=== PATIENT | female | born 1975 | race Caucasian/White ===

== ENCOUNTER 2025-03-18 14:58 | Outpatient (REF) | payer BC, SELFPAY ==
--- OUTSIDE RECORDS SUMMARY | 2025-03-15 23:59 | XMS_ITS | Continuity of Care Document ---
Author Organization Pre Op [facility]flow Address [address] [place] [id number]- [facility] [phone] Care Team Providers Care Dehydrogenation Supervisor Name Role Phone Mai Storey Primary Care Physician Encounter [facility] Date(s): 02/13/25 - 03/15/25 Pre Op Overflow [address] [place] [id number] Attending Physician: Chriss Maurice Admitting Physician: Chriss Maurice Referring Physician: Chriss Maurice Encounter Type: Triage Allergies, Adverse Reactions, Alerts No Known Allergies Medications Airborne Airborne, PRN, 0 Refills, Maintenance, 02/13/25 4:25:00 PM EDT Start Date: 02/13/25 Status: Ordered Medication Dispense Status: Completed Total Allowed Fills: 1 Fills Dispensed: 0 Magnesium Magnesium, 0 Refills, Maintenance, 02/13/25 4:25:00 PM EDT Start Date: 02/13/25 Status: Ordered Medication Dispense Status: Completed Total Allowed Fills: 1 Fills Dispensed: 0 Vitamin D3 Vitamin D3, 0 Refills, Maintenance, 02/13/25 4:25:00 PM EDT Start Date: 02/13/25 Status: Ordered Medication Dispense Status: Completed Total Allowed Fills: 1 Fills Dispensed: 0 Problem List Condition Confirmation Course Effective Dates Status Health St atus Informant Allergic rhinitis, unspecified Confirmed Active Migraine Confirmed Active Social History Social History Type Response Sexual Sexually involved in last 6 months: Yes. Smoking Status Never (less than 100 in lifetime);Never entered on: 12/10/18 Sex Sex Representation Female (finding) Patient Care team information Care Team Personnel Name: Mai Storey Position: Reference Physician Member Role: PCP Address: [address] [place] [address] [place] [address]- Telecom: Care Team Related Persons Name: NEIL SHERMAN Insurance Providers Guarantor name: RODRIGO SHERMAN Health Plan Information #: 1 Payer: [employer] [facility] Payer Identifier: NA Member Number: [id number] Group Number: [id number] Subscriber Identifier: NA Relationship to Subscriber: spouse Coverage Type: NA Coverage Verification Date: NA Telecom: NA Address:
--- OUTSIDE RECORDS SUMMARY | 2025-03-18 18:44 | XMS_ITS | Clinical Summary ---
Author Organization [facility] [address] [place] [address] [place] [phone] Phone Care Team Providers Care Bond Clerk Name Role Phone Kelsie Forte MD Primary Care Provider Allergies No known active allergies Medications polyethylene glycol (Golytely) 236-22.74-6.74 -5.86 gram solution Take 4L by mouth once for one dose. May substitue any PEG. Starting at 2PM the day before your procedure drink 1 8oz glasses at your own pace until you complete half of the gallon. Finish 2nd half of the gallon at 8PM. 4000 mL 5 Active bisacodyL (DULCOLAX) 5 mg EC tablet Take 2 tablets by mouth right before beginning bowel prep. See instructions provided by the office 2 tablet 5 Active Active Problems No known active problems Encounters Date Type Department Care Team Description 03/13/2025 Telephone Gastroenterology - [place] [facility] [address] [facility] [address] [place] [address] Ronald Mo DO 03/03/2025 7:30 AM EDT - 03/03/2025 10:30 AM EDT Surgery [facility] [place] [address] [place] [phone] Elena Graves MD ABDOMINOPLASTY [[id number] (CPT )] 03/03/2025 7:30 AM EDT Anesthesia Event [facility] OR [address] [place] [phone] Ronen Barba MD 03/03/2025 6:07 AM EDT - 03/03/2025 12:15 PM EDT Hospital Encounter [facility] [place] [phone] Elena Graves MD Discharge Disposition: Home or Self Care from Last 3 Months Surgical History Surgery Date Site/Laterality Comments EYE SURGERY 2011 PROCEDURE: [place] TRABECULOPLASTY BY LASER SURGERY LIPOSUCTION Medical History Medical History Date Comments Premenstrual tension syndromes D X:Premenstrual tension syndromes Allergic rhinitis, cause unspecified DX:Allergic rhinitis, cause unspecified Family History Medical History Relation Name Comments Other: skin cancer Aunt maternal Other cancer Father liver pancreas bone Prostate cancer Maternal Grandfather [place], diabetes, hypertension Other: ptosis Son 1 Breast cancer Neg Hx Colon cancer Neg Hx Ovarian cancer Neg Hx Uterine cancer Neg Hx Relation Name Status Comments Aunt Brother Alive Healthy Father cancer pancreas spread to liver Maternal Grandfather Alive DM, [place], HTN, Prostrate cnacer Maternal Grandmother Alive Healthy Mother Alive Healthy, skin c ancer - unknown type Paternal Grandfather (Age 70's) liver cancer Paternal Grandmother Alive Heathy Son 1 Son 2 Alive Healthy Son 3 Alive Healthy Social History Tobacco Use Types Packs/Day Years Used Date Smoking Tobacco: Never Smokeless Tobacco: Never Alcohol Use Standard Drinks/Week Comments Yes 3.3 (1 standard drink = 0.6 oz p ure alcohol) Housing Instability Answer Date Recorde d Are you worried that in the next 2 months you may not have stable housing? No 12/08/2024 Food Access & Nutrition Answer Date Rec orded Do you have access to a vari ety of food including fruits and vegetables? Yes 12/08/2024 Access to Healthcare Answer Date Record ed Within the last 3 months, ho w many times did you visit the emergency department for your medical care? 0 12/08/2024 Health Literacy Answer Date Recorded How often do you need to hav e someone help you when you read instructions, pamphlets, or other written material from your doctor or pharmacy? Never 12/08/2024 Caregiver: How often do you need to have someone help you when you read instructions, pamphlets, or other written material from your doctor or pharmacy? Not on file 12/08/2024 Financial Risk Answer Date Recorded How hard is it for you to pa y for the very basics like food, housing, medical care, and air conditioning / heating? Not very hard 12/08/2024 Transportation Answer Date Recorded Has the lack of transportati on kept you from meetings, work, or from getting things needed for daily living? No Has the lack of transportati on kept you from medical appointments or from getting medications? No 12/08/2024 Social Isolation Answer Date Recorded How often do you feel lonely or isolated from th ose around you? Never 12/08/2024 Food Risk Answer Date Recorded Within the past 12 months we worried whether our food would run out before we got money to buy more. Never true 12/08/2024 Within the past 12 months th e food we bought just didn't last and we didn't have money to get more. Never true 12/08/2024 Dependent Care Answer Date Recorded Do you need help finding or paying for care for your loved ones. For example, children's zoo caretaker or elderly care for an older adult? No 12/08/2024 Education Answer Date Recorded Do you think completing more education or training, like finishing a GED, going to college, or learning a trade, would be helpful for you? No 12/08/2024 Employment and Income Answer Date Recor ded During the last four weeks, have you been actively looking for work? No 12/08/2024 Living Situation Answer Date Recorded What is your living situation? Unrecognized valu e 12/08/2024 Comments No Sex and Gender Information Value Date Recorded Sex Assigned at Not on file Legal Sex Female 1:49 AM EST Gender Identity Not on file Sexual Orientation Not on file Obstetrics History Para Term AB IAB SAB Ectopic Multiple Livin g Live Births 2 2 2 2 Date Outcome GA Total Labor Labor/2nd/3rd Weight Sex Type Anes PTL Candie A1 A5 Name Clin Term Term Last Filed Vital Signs Vital Sign Reading Time Taken Comments Blood Pressure 110/66 03/03/2025 10:46 AM EDT Pulse 71 03/03/2025 10:46 AM EDT Temperature 36.5 C (97.7 F) 03/03/2025 10:46 AM EDT Respiratory Rate 16 03/03/2025 10:46 AM EDT Oxygen Saturation 94% 03/03/2025 10:46 AM EDT Inhaled Oxygen Concentration - - Weight 78 kg (172 lb) 02/10/2025 3:00 PM EDT Height 180.3 cm (5' 11 ) 02/10/2025 3:00 PM EDT Body Mass Index 23.99 02/10/2025 3:00 PM EDT Plan of Treatment Health Maintenance Due Date Last Done Comments Colorectal Cancer Screening: Colonoscopy 1974 Hepatitis B Vaccines (1 of 3 - 19+ 3-dose series) 1993 HIV Screening 04/15/2022 Hepatitis C Screening 04/15/2022 DTaP,Tdap,and Td Vaccines (3 - Td or Tdap) 05/26/2023 05/26/2013, 05/24/2001 Pneumococcal Vaccine: 50+ Years (1 of 1 - PCV) 2024 Zoster Vaccines (1 of 2) 2024 COVID-19 Vaccine ( season) 2025 07/07/2021, 08/20/2020, 07/23/2020 Influenza Vaccine (#1) 2025 Social Influencers of Health Screening 12/08/2025 12/08/2024 Breast Cancer Screening 10/20/2026 10/21/19, 10/01/2024, 09/20/2023, Additional history exists Cervical Cancer Screening: HPV 12/09/2029 12/09/2024 RSV Immunization Adult Patients (1 - 1-dose 75+ series) 2049 Depression Screening Completed 12/08/2024 HIB Vaccines Aged Out No longer eligi ble based on patient's age to complete this topic HPV Vaccines Aged Out No longer eligi ble based on patient's age to complete this topic Hepatitis A Vaccines Aged Out No long er eligible based on patient's age to complete this topic IPV Vaccines Aged Out No longer eligi ble based on patient's age to complete this topic MMR Vaccines Aged Out No longer eligi ble based on patient's age to complete this topic Meningococcal ACWY Vaccine Aged Out N o longer eligible based on patient's age to complete this topic Meningococcal B Vaccine Aged Out No l onger eligible based on patient's age to complete this topic RSV Immunization Patients Under 20 months Aged Out No longer eligible based on patient's age to complete this topic Varicella Vaccines Aged Out No longer eligible based on patient's age to complete this topic Goals Goal Patient Goal Type Associated Problems Recent Progress Patient-Stated? Author Autogenerat ed Goal Care Plan Autogenerated Problem No Shayne Marion Procedures Procedure Name Priority Date/Time Associated Diagnosis Comments TH AN ENDOTRACHEAL(NO CHARGE) Routine 03/03/2025 8:00 AM EDT OH EXCISION EXCESSIVE SKIN AND SUBCUTANEOUS TISSUE ABDOMEN 03/03/2025 7:30 AM EDT Encounter for cosmetic surgery Case Notes CC POC , URINE DIAGNOSTIC Routine 03/03/2025 6:20 AM EDT HPV WITH REFLEX GENOTYPE Routine 12/09/2024 3:35 PM EDT Cervical cancer screening MG MAMMO DIGITAL DIAGNOSTIC W [place] RIGHT Routine 10/20/2024 3:20 PM EDT Abnormal mammogram from Last 3 Months or Most Recently Relevant to Health Maintenance Results * TH AN ENDOTRACHEAL(NO CHARGE) (03/03/2025 8:00 AM EDT) Narrative Ronen Barba MD - 03/03/2025 8:00 AM EDT Ronen Barba MD 03/03/2025 8:01 AM General Information and Staff Patient location during procedure: OR Performed by: Ronen Barba MD Authorized by: Ronen Barba MD Intubation Airway not difficult Reason: elective Final Airway Details Successful airway: ETT Cuffed: yes Successful intubation technique: direct laryngoscopy Adjuncts used in placement: intubating stylet Endotracheal tube insertion site: oral Blade: Ashok Blade size: #3 ETT size (mm): 7.0 Cormack-Lehane Classification: grade I - full view of glottis Placement verified by: chest auscultation and capnometry Cuff volume (mL): 8 Measured from: teeth ETT to teeth (cm): 21 Final airway type: endotracheal airway Indications and Patient Condition Indications for airway management: anesthesia Preoxygenated: yesPatient position: sniffing Mask difficulty assessment: 1 - vent by mask Start Time: 03/03/2025 7:39 AMStop Time: 03/03/2025 7:40 AM us Ronen Barba MD ANESTHESIA ORDERABLES Final R esult * POC , urine manually resulted (03/03/2025 6:20 AM EDT) HCG, Ur POC Negative Negative POC hCG Int QC Pass? Yes Yes Urine Urine specimen obtained by clean catch procedure / Unknown 03/03/2025 6:20 AM EDT us Ronen Barba MD POINT OF CARE TEST ENTER/EDIT ORDERABLES Final Result * HPV with reflex genotype (12/09/2024 3:35 PM EDT) HPV Negative Negative LAB MICROBIOLOGY METHOD 12/12/2024 8:55 AM EDT [facility] Brushing/Spatula Cervix uteri structure / Unknown 12/09/2024 3:35 PM EDT 12/11/2024 7:06 AM EDT Dulce [facility] LAB MOLECULAR DIAGNOSTICS OR DERABLES Final Result [facility] [address] [place] [address], [place] [phone] * MG Mammo Digital Diagnostic w [place] Right (10/20/2024 3:20 PM EDT) Anatomical Region Laterality Modality Breast Right Mammography 10/20/2024 3:28 PM EDT Impressions 10/20/2024 3:48 PM EDT 1. No mammographic or sonographic evidence of malignancy 2. Heterogeneously dense Findings and recommendations were conveyed to the patient. BI-RADS CATEGORY: 2 - BENIGN RECOMMENDATION: Return to annual mammography. Return to annual mammography. Mammo Location: [facility], [address] [place] [address], [id number], . -------- FINAL REPORT -------- Dictated By: Venus Pierre Dictated Date: 10/20/2024 15:28 ET Assigned Physician: Venus Pierre Reviewed and Electronically Signed By: Venus Pierre Signed Date: 10/20/2024 15:48 ET Workstation ID: [id number] Transcribed By: Self Edit Transcribed Date: 10/20/2024 15:47 ET Narrative 10/20/2024 3:48 PM EDT RIGHTDIGITAL DIAGNOSTIC 3D MAMMOGRAPHY HISTORY: Workup for CC view medial middle depth asymmetry COMPARISON: Mammogram from 10/01/2024 Technique: CC spot compression 3-D FINDINGS: Right breast CC view medial middle depth asymmetry becomes equal in density on spot compression and is consistent with benign summation of fibroglandular tissue. Sonographic evaluation demonstrates no focal abnormality BREAST DENSITY: C - The breasts are heterogeneously dense which may obscure small masses. EXAM: RIGHT BREAST TARGETED ULTRASOUND EVALUATION TECHNIQUE: Ultrasonographic examination is performed using a linear array transducer. Targeted right breast ultrasound from 12:00 to 6:00 of the medial breast evaluate mammographic finding. Real-time sonographic scanning was also performed by the radiologist FINDINGS: From 12:00-6:00 of the medial breast, no sonographic evidence of malignancy or other focal abnormalities were identified at the right breast in area of mammographic concern Procedure Note Venus Pierre MD - 10/20/2024 RIGHTDIGITAL DIAGNOSTIC 3D MAMMOGRAPHY HISTORY: Workup for CC view medial middle depth asymmetry COMPARISON: Mammogram from 10/01/2024 Technique: CC spot compression 3-D FINDINGS: Right breast CC view medial middle depth asymmetry becomes equal indensity on spot compression and is consistent with benign summation offibroglandular tissue. Sonographic evaluation demonstrates no focalabnormality BREAST DENSITY: C - The breasts are heterogeneously dense which mayobscure small masses. EXAM: RIGHT BREAST TARGETED ULTRASOUND EVALUATION TECHNIQUE: Ultrasonographic examination is performed using a linear arraytransducer. Targeted right breast ultrasound from 12:00 to 6:00 of themedial breast evaluate mammographic finding. Real-time sonographicscanning was also performed by the radiologist FINDINGS: From 12:00-6:00 of the medial breast, no sonographic evidence ofmalignancy or other focal abnormalities were identified at the rightbreast in area of mammographic concern IMPRESSION: 1. No mammographic or sonographic evidence of malignancy 2. Heterogeneously dense Findings and recommendations were conveyed to the patient. BI-RADS CATEGORY: 2 - BENIGN RECOMMENDATION: Return to annual mammography. Return to annual mammography. Mammo Location: [facility], [address] [place] [address], [id number], . -------- FINAL REPORT -------- Dictated By: Venus Pierre Dictated Date: 10/20/2024 15:28 ET Assigned Physician: Venus Pierre Reviewed and Electronically Signed By: Venus Pierre Signed Date: 10/20/2024 15:48 ET Workstation ID: [id number] Transcribed By: Self Edit Transcribed Date: 10/20/2024 15:47 ET Benji Gómez CN IMG BI PROCEDURES Final Resul t from Last 3 Months or Most Recently Relevant to Health Maintenance Additional Health Concerns Active Problems Noted Date Diagnosed Date Autogenerated Problem 03/04/[address] [place] [address] [place] [address]) Advance Directives * Full Code - Default (Latest Code Status on File) Date Activated Date Inactivated Comments 03/03/2025 6:20 AM 03/03/2025 2:20 PM This is or michelle is used when code status has not been discussed with the patient, or code status is otherwise unknown/unconfirmed To update the patient's code status, place a code status order. Do not modify or discontinue any currently active code status orders. Care Teams Bond Clerk Relationship Specialty Start Date End Date Kelsie Forte MD [address] [place] [address] PCP - General Internal Medicine 06/01/15
--- OUTSIDE RECORDS SUMMARY | 2025-03-18 18:44 | XMS_ITS | Encounter Summary ---
Author Organization [facility] Address [address] [place] [address] Care Team Providers Care Product Planner Name Role Phone Kelsie Forte MD Primary Care Provider [phone] Reason for Visit * Reason Onset Date Comments r/s procedure 03/13/2025 Encounter Details Date Type Department Care Team ([facility] Contact Info) Description 03/13/2025 Telephone Gastroenterology - [place] [address] [facility] [address] [facility] [address] [place] [phone] Ronald Mo DO [address] [facility] [address] [place] [address] Social History Tobacco Use Types Packs/Day Years [...] care for your loved ones. For example, child welfare specialist or elderly care for an older adult? [...] on file Sexual Orientation Not on file documented as of this encounter Progress Notes * Alexandra Turner MA - 03/17/2025 8:17 AM EST 2nd attempt to schedule an appointment patient left message to call back * Rica Vo - 03/13/2025 9:19 AM EST CANCELLED. 1st attempt to reach patient to schedule appointment. Left message to call back. * Elida Cardoso - 03/13/2025 9:08 AM EST Pt is calling to r/s her procedure due to just having another procedure. documented in this encounter Plan of Treatment Not on file documented as of this encounter Goals Goal Patient Goal Type Associated Problems Recent Progress Patient-Stated? Author Autogenerat ed Goal Care Plan Autogenerated Problem No Shayne Marion documented as of this encounter Visit Diagnoses Not on filedocumented in this encounter Additional Health Concerns Active Problems Noted Date Diagnosed Date Autogenerated Problem 03/04/2025 Assessment Noted Time PHQ-9 Depression Total Score: 0 12/09/19 25 9:00 PM EDT documented as of this encounter Care Teams Product Planner Relationship Specialty Start Date End Date Kelsie Forte MD [address] [place] [phone] PCP - General Internal Medicine 06/01/15 documented as of this encounter
[2025-03-18 18:47] LABS: Alanine Aminotransferase 26 U/L (0-31); Albumin Level 4.6 g/dL (3.5-5.0); Alkaline Phosphatase 63 U/L (39-117); Anion Gap 12 (12-20); Aspartate Amino Transferase 26 U/L (5-31); Blood Urea Nitrogen 14 mg/dL (9-16); Calcium 9.1 mg/dL (8.4-10.2); Carbon Dioxide 24 mmol/L (22-29); Chloride 108 mmol/L (96-108); Cholesterol 206 mg/dL (<200); Estimated Glomerular Filt Rate > 60; HDL Cholesterol 68 mg/dL (>40); Potassium 3.8 mmol/L (3.3-5.1); Sodium 140 mmol/L (135-145); Total Protein 7.4 g/dL (6.5-8.0); Triglycerides 116 mg/dL (<150)
[2025-03-18 19:05] LABS: Hematocrit 37.0 % (37.0-47.0); Hemoglobin 12.9 g/dl (12.0-16.0); Mean Corpuscular HGB Conc 34.9 g/dl (31.0-35.0); Mean Corpuscular Hemoglobin 30.9 pg (27.0-33.0); Mean Corpuscular Volume 88.5 fL (80.0-98.0); NRBC Abs Auto 0.000 X10*3/uL (0.0-0.012); NRBC Pct Auto 0.0 /100WBC (0.0-0.2); Platelet Count 256 X10*3/uL (160-400); Red Blood Count 4.18 X10*6/uL (4.20-5.50); White Blood Count 8.8 X10*3/uL (4.8-10.8)
[2025-03-18 19:14] LABS: Folate 12.1 ng/mL (> or = 4.0); Vitamin B12 894 pg/mL (200-900)
== END 2025-03-18 14:59 | disposition home or self-care (01) ==
LOC: HO.WFDLDS 14:58
PROVIDERS: PCP Nurse Practitioner Family; Visit Provider Nurse Practitioner Family
DX: Z00.00 Encounter for general adult medical examination without abnormal findings (principal); Z23 Encounter for immunization; Z76.89 Persons encountering health services in other specified circumstances; D22.9 Melanocytic nevi, unspecified; K46.9 Unspecified abdominal hernia without obstruction or gangrene; Z80.7 Family history of other malignant neoplasms of lymphoid, hematopoietic and related tissues; Z80.0 Family history of malignant neoplasm of digestive organs
CPT/HCPCS: 36415; 80053; 80061; 82306; 82570; 82607; 82746; 83036; 84443; 85027; 90471; 90715; 96127

== ENCOUNTER 2025-03-18 14:58 | Outpatient (AMB) | payer BC, SELFPAY ==
--- NOTE | 2025-03-18 15:06 | A.OFFPC_ITS ---
Vital Signs 3 03/18/25 15:11 Height 5 ft 11 in Weight 178 lb 2 oz BMI 24.8 BP 122/70 Blood Pressure Location Lt brachial Position Sitting Respiration 12 Pulse 85 Pulse Source Pulse Oximeter Temp 97.2 F Temp Source Oral Pulse Oximetry (%) 98 Oxygen Delivery Method Room Air Intake Visit Reasons: CPE -rescheduled 3x Intake Note: New patient to establish care and cpe. Patient had surgery on 03/03/25 and has a bump on abd. Obstetrical Nurse Required: No Allergies No Known Allergies Allergy (Verified 03/18/25 15:15) Medication List - Last Reviewed 03/18/25 by Rajni Puckett MA No Known Home Meds Tobacco use date assessed: 03/18/25 Dental Screening Dental Screen Date: 03/18/25 Did you have a dental visit in the last 12 months?: Yes Did you have a dental problem in the last 6 months where you did not have access to dental care?: No Was dental information given to patient?: Patient has dentist HPI HPI Comments 2 History of Present Illness0 Details 49 y/o F with Lattice degeneration of re roseline, perimenopause, fhx pancreatic cancer (dad) & PROJECT FINANCE ANALYST lymphoma (Mom) s/p reverse abdominoplasty 03/03/25, retinal laser treatment Fhx: Mom alive w/ PROJECT FINANCE ANALYST lymphoma CAD; Dad pancreatic ca 59; 1 brother alive and well; 2 boys alive and well. MGF with prostate ca Social: 6th grade [employer], [place] Tdap 2013 Flu declined 03/18/2025 Mammo September 2024 ([facility]) DEXA N/A Colon will have done at [facility] Pap UTD through GAME ENGINEER 12/2024 Specialists Retinal specialist Optho [employer] 12/2024 History of Present Illness The patient is a 49-year-old female presenting to establish care & for CPE No records GAL [place] Postoperative complication of abdominal surgery: - The patient underwent a reverse abdomi noplasty on March 03, which was a revision of a previous lower abdominoplasty. - She developed a new, non-painful, flui d-filled bump on her abdomen last night, which she noticed while sitting on the couch. - She denies any associated straining, l ifting, fever, chills, nausea, or vomiting. - Her last follow-up with the plastic alfaro rgeon was last Sunday. Lattice degeneration of retina: - The patient has a history of weak reti derek with concerns for detachment, described as lattice degeneration. - She has undergone laser treatment in [facility] to strengthen the retinas and follows with a retinal specialist. Perimenopause: - The patient had an IUD for over 10 yea rs, which was removed in December. - Following the removal, she experienced a return of her menstrual periods, which were heavy in December and January, quality tech in February, and absent so far in the current month, consistent with a perimenopausal state. Health Maintenance: - She reports no chronic medical conditi ons and is not taking any medications. - Her last mammogram was in September, which r equired a follow-up for dense tissue in the right breast but was ultimately normal. - A colonoscopy was recently scheduled b ut was postponed by her surgeon due to her abdominal surgery; she plans to reschedule it. - She is up to date with her Pap smear. - Her last tetanus shot was in 2013. - She has not had a flu shot in a long t [facility] and declines one today. Past Medical History - Lattice degeneration of retina, status post laser treatment. - Dense breast tissue on mammography. - History of IUD use for 10+ years, crystal [place] in December. Past Surgical History - Reverse abdominoplasty on March 03 . - Prior lower abdominoplasty. - Laser treatment to both retinas for la ttice degeneration. Family History - Mother: Alive with a history of PROJECT FINANCE ANALYST ly mphoma. - Father: at age 59 from pancre atic cancer. - Siblings: One brother, alive and well. - Children: Two sons, alive and well. - No other family history of cancer repo rted. 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 - Marital Status: . Health Maintenance - Pap smear: Up to date. - Mammogram: Completed in September, results w ere normal after a callback for dense tissue in the right breast. - Colonoscopy: Screening is due, was pos tponed due to recent surgery, and patient will reschedule. - Immunizations: Tdap due and administer ed today as last dose was in 2013. Patient declines seasonal flu vaccine. - Screening labs: Ordered for today to e stablish a baseline, including CBC, diabetes, and cholesterol screening. - Dermatology: Referral placed for a ful l body skin exam for multiple nevi. Review of Systems - Constitutional: Denies fever and chill s. - Gastrointestinal: Reports a new, non-p ainful, fluid-filled bump on her abdomen. Denies nausea and vomiting. - Genitourinary: Reports irregular mense s since IUD removal in December, consistent with perimenopause. - Eyes: Reports history of weak retinals with concern for detachment. - Skin: Reports having numerous moles. Physical Exam General: Well developed, well nourished, in no acute distress. Appears stated age. Head: Normocephalic, atraumatic. Eyes: Pupils are equal, round and reactive to light and accommodation. Conjunctivae are clear. Scleras nonicteric bilat. Vision grossly normal. Ears: TMs clear AU, EACS WNL Nose: Patent, without discharge. Neck: No carotid bruit bilat. Supple, no adenopathy or thyromegaly. Breast: Edu on SBE. Lungs: Clear to auscultation bilaterally. No rales, rhonchi or wheeze noted. Good air flow in all lewis. Heart: Regular rate and rhythm. No murmurs, click, rubs or gallops are noted. Abdomen: Bowel sounds present in all quadrants. The abdomen is soft, nontender, with no masses or organomegaly noted. : Deferred. Reviewed recommendations for routine GAME [employer]. Perimenopausal symptoms noted. Pulses: Peripheral pulses are equal and palpable bilaterally. Extremities: No clubbing, cyanosis nor edema is noted. Neurologic: Gait and station normal. Cranial Nerves 2-12 intact. Motor strength grossly symmetrical and intact. No sensory loss. Balance normal. Skin: No rashes, ulcers, or lesions noted. Turgor is good. Skin color is good. Hair and nails are without abnormalities. Numerous moles on trunk Psych: Normal eye contact, affect and mood appropriate, and normal interactions. Patient is alert and appropriate to context. Results Pending Medical Decision Making The patient is a 49-year-old female here to establish primary care. Her main acute concern is a new, palpable, fluid-filled mass on her abdomen that developed last night, following a reverse abdominoplasty on March 03. On physical examination, the mass becomes larger and firmer with abdominal flexion, which is concerning for a possible incisional hernia, though a seroma remains in the differential. Given these findings, she has been advised to follow up urgently with her plastic surgeon for further evaluation. Health maintenance was also addressed. Baseline laboratory studies, including a CBC, CMP, and lipid panel, were ordered to establish a baseline and to check her blood counts post-surgery. A Tdap vaccine was recommended and administered as she was due for a booster. Due to the presence of multiple moles, a dermatology referral was placed for a skin cancer screening. The patient will also reschedule her colonoscopy, which had been postponed. Follow-up is scheduled in one year for an annual physical. Plan 1. Postoperative Complication Of Reconst ructive Surgery Of Abdominal Wall - The differential diagnosis for the new abdominal mass includes a seroma and an incisional hernia. - The finding that the mass becomes larg er and firmer with abdominal flexion is suspicious for a hernia. - Advised to call her plastic surgeon fo r evaluation. 2. Annual Wellness Visit/Establishment O f Care - Administer Tdap vaccine today. - Obtain baseline screening labs, includ ing CBC, chemistry panel, and lipid panel. - Place referral to Dermatology for a fu ll-body skin exam. - Counselled to reschedule her postponed colonoscopy. - Instructed patient on signing up for a nd using the patient portal. - Schedule follow-up in one year for an annual wellness visit. 3. Lattice Degeneration Of Retina - The condition is being managed by a re tinal specialist. - Continue to follow up with ophthalmolo gy as directed. 4. Perimenopausal State - The patient's irregular menstrual cycl e is consistent with perimenopause. - No acute intervention is planned at th is time; will monitor. Patient Instructions - Please call your plastic surgeon's off ice to have the new bump on your abdomen evaluated. - You will receive a Tdap (tetanus, diph theria, and whooping cough) vaccine today before you leave. - We are ordering blood tests to check y our blood counts, cholesterol, and kidney function as a baseline. You can have these done at our lab today. - A referral has been sent to a skin spe cialist (furniture dipper). Please wait about a week, then call their office to schedule your appointment. - Please remember to reschedule your col onoscopy. - You will receive an email to sign up f or our patient portal. Please click the link and register within 24 hours. This is the best way to message me, ask questions, and see your lab results. - Please schedule a follow-up appointmen t for an annual check-up in one year. Consent The patient provided verbal consent for baseline laboratory testing, including a CBC, chemistry panel, and lipid panel, after the rationale for wellness screening and postsurgical monitoring was explained. She also provided verbal consent for a Tdap vaccination. The patient's request for confidentiality regarding her abdominal surgery from her mother, who is also a patient at this practice, was acknowledged and assured in accordance with HIPAA regulations. Patient was informed and verbally consented to the use of an ambient scribe for clinic note documentation during this visit. An additional 30 minutes was spent addressing the problem(s) noted at todays visit. This includes time spent before the visit reviewing the chart, time spent during the visit, and time spent after the visit on documentation reviewing laboratory results, diagnostic imaging, medications, performing a medically necessary evaluation, counseling on diagnoses, care coordination, ordering appropriate tests, ordering appropriate medications, review of tests performed by other providers, reporting test results with the patient, communication with other healthcare providers. [facility] Medical History (Updated 03/18/25 @ 15:45 by Shameka Mclean, [facility]) Hx of mammogram (~09/2024) No pertinent past medical history Surgical History (Updated 03/18/25 @ 15:16 by Rajni Puckett MA) H/O abdominoplasty H/O eye surgery Family History (Updated 03/18/25 @ 15:18 by Rajni Puckett MA) Paternal Grandmother Cardiovascular disease Mother Brain cancer Father Pancreas cancer Paternal Grandfather Prostate cancer Social History (Updated 03/18/25 @ 15:14 by Rajni Puckett MA) Household Members: Spouse and Children Both parents involved: No Caregiver staying overnight: No Housing: House Are you a primary animal care taker to a significant other at home: Yes Do you presently have visiting nurse or other home services: No 75 years or older and lives alone: No Alcohol intake: current Alcohol intake frequency: a few times a month Patient Tobacco Use Status: Never used Tobacco e-Cigarette/Vaping Use: Never Used Second Hand Smoke Exposure: No service: No Current occupational status: employed Current occupation: teacher Cognitive needs: No Hearing needs: No Vision needs: Yes (wear glasses/retina detaching ) Questionnaire PHQ-9 Over the last 2 weeks, how often have you been bothered by any of the following problems? 1. Little interest or pleasure in doing things: not at all 2. Feeling down, depressed, or hopeless: not at all 3. Trouble falling or staying asleep, or sleeping too much: not at all 4. Feeling tired or having little energy: not at all 5. Poor appetite or overeating: not at all 6. Feeling bad about yourself - or that you are a failure or have let yourself or your family down: not at all 7. Trouble concentrating on things, such as reading the newspaper or watching television: not at all 8. Moving or speaking so slowly that other people could have noticed. Or the opposite - being so fidgety or restless that you have been moving around a lot more than usual: not at all 9. Thoughts that you would be better off or of hurting yourself in some way: not at all Total score: 0 Depression Screening Interpretation: Negative Depression Screening Done: Yes 19903 - PHQ-9 Billing: Yes Source: Developed by Drs. Hernandez Borrero, Anyi Rangel, Jason Culp and colleagues, with an educational harish from [employer]. Thrive Questionnaire Date Thrive assessed: 03/18/25 I am a: Patient What is your living situation today?: I have a steady place to live Within the past 12 months, did the food you bought not last and you didn't have the money to get more?: Never true Within the past 12 months, did you worry whether your food would run out before you got money to buy more?: Never true Do you have trouble paying for medicines?: No Do you have trouble getting transportation to medical appointments?: No Do you have trouble paying your heating and electricity bill?: No Do you have trouble taking care of your child, family member or friend?: No Do you have trouble with day-to-day activities such as bathing, preparing meals, shopping, managing finances, etc.?: No Are you currently unemployed and looking for a job?: No Are you interested in more education?: No Please select the resources that you would like help with: None Currently or been in a relationship where the following occur: No concerns reported THRIVE Score: 0 AUDIT C Alcohol Use Questionnaire (AUDIT-C) 1. How often do you have a drink containing alcohol?: 2-3 times a week 2. How many drinks containing alcohol do you have on a typical day when you are drinking?: 1 or 2 3. How often do you have six or more drinks on one occasion?: Never Total Score: 3 Score Reviewed/Action Taken: Yes NATHALIE-7 AMB Questionnaire NATHALIE-7 Date NATHALIE - 7 assessed: 03/18/25 Feeling nervous, anxious, or on edge: 0 = Not at all Not being able to stop or control worryin = Not at all Worrying too much about different things: 1 = Several days Trouble relaxin = Not at all Being so restless that it is hard to sit still: 0 = Not at all Becoming easily annoyed or irritable: 0 = Not at all Feeling afraid as if something awful might happen: 0 = Not at all Total NATHALIE-7 score (0-4 normal; 5-9 mild; 10-14 moderate; 15-21 severe): 1 Source: Developed by Drs. Hernandez Borrero, Anyi Rangel, Jason Culp and colleagues, with an educational harish from [employer]. NATHALIE-7 Assessment Billing NATHALIE-7 Assessment Tool: NATHALIE-7 Assessment 16262 Physical exam (Primary Care) Vital Signs: Last Vital Signs Temp 97.2 F 03/18/25 15:11 Pulse 85 03/18/25 15:11 Resp 12 03/18/25 15:11 BP 122/70 03/18/25 15:11 Pulse Ox 98 03/18/25 15:11 Oxygen Delivery Method Room Air 03/18/25 15:11 BMI result Body Mass Index 24.8 Tobacco/Smoking Status: Tobacco use Status Tobacco use date assessed 03/18/25 03/18/25 15:13 Patient Tobacco Use Status Never used Tobacco 03/18/25 15:14 e-Cigarette/Vaping Use Never Used 03/18/25 15:14 PHQ-9: PHQ-9 Score PHQ-9: Total score 0 03/18/25 15:23 Depression Screening Interpretation: Negative Thrive Assessment: Date of Thrive Assessment Date Thrive assessed 03/18/25 03/18/25 15:08 Currently or been in a relationship where the following occur: No concerns reported GI Abdomen image: 2 1. well healing surgical incision 2. visible mass, soft, nontender, increases and becomes semifirm with valsalva Immunizations Boostrix Tdap 2.5 Lf unit-8 mcg-5 Lf/0.5 mL intramuscular syringe Performing Provider: CATHERNIE Beltran Performing Location: [facility] Family Medicine Administered by: Rajni Puckett MA on 03/18/25 15:39 2 Dose Route Admin Location Dispensed Lot Number Expiration Date NDC Cabin Worker 0.5 mL IM Left Deltoid 0.5 mL [id number] 04/03/27 [id number] Varolii 2 Total Dispensed Waste 0.5 mL 0 % 2 VIS Given Date VIS Provided VIS Publication Date 03/18/25 Single Vaccine 20 Eligibility Eligibility Date Funding Source Not [facility] Eligible 03/18/25 Private Coding Level of Care Code New Pt Level 3 (20034) New Pt Prev Care 40-64y(19082) Diagnoses Encounter to establish care Z76.89 Laboratory exam ordered as part of routine general medical examination Z00.00 Numerous skin moles D22.9 Need for Tdap vaccination Z23 Influenza vaccination declined Z28.21 Family history of pancreatic cancer Z80.0 Family history of lymphoma Z80.7 Encounter for general adult medical examination without abnormal findings Z00.00 Abdominal hernia K46.9 Hernia type: unspecified Additional Codes NATHALIE-7 Assessment Billing - NATHALIE-7 Assessment Tool: NATHALIE-7 Assessment 38168 ([id number]) PHQ-9 - 58020 - PHQ-9 Billing: Yes ([id number]) Assessment & Plan Assessment & Plan (1) Encounter to establish care: Code(s): Z76.89 - Persons encountering health services in other specified circumstances (2) Laboratory exam ordered as part of routine general medical examination: Code(s): Z00.00 - Encounter for general adult medical examination without abnormal findings Category: Medical (3) Numerous skin moles: Code(s): D22.9 - Melanocytic nevi, unspecified Category: Medical (4) Need for Tdap vaccination: Onset Date: ~03/18/25 Code(s): Z23 - Encounter for immunization Category: Medical (5) Influenza vaccination declined: Onset Date: ~03/18/25 Code(s): Z28.21 - Immunization not carried out because of patient refusal Category: Medical (6) Family history of pancreatic cancer: Comment: DAD AGE 59 Code(s): Z80.0 - Family history of malignant neoplasm of digestive organs Category: Medical (7) Family history of lymphoma: Comment: MOM W/ PROJECT FINANCE ANALYST LYMPHOMA AGE 70'S Code(s): Z80.7 - Family history of other malignant neoplasms of lymphoid, hematopoietic and related tissues Category: Medical (8) Encounter for general adult medical examination without abnormal findings: Onset Date: ~03/18/25 Code(s): Z00.00 - Encounter for general adult medical examination without abnormal findings Category: Medical (9) Abdominal hernia: Code(s): K46.9 - Unspecified abdominal hernia without obstruction or gangrene Category: Medical Qualifiers: Hernia type: unspecified Plan . Orders: Orders 2 TSH reflex Free T4 Today Z00.00 - Encounter for general adult medical examination without abnormal findings Vitamin B12 and Folate Today Z00.00 - Encounter for general adult medical examination without abnormal findings Vitamin D 25-OH Total Today Z00.00 - Encounter for general adult medical examination without abnormal findings TDaP Immunization Today Z23 - Encounter for immunization Complete Blood Count no Diff Today Z00.00 - Encounter for general adult medical examination without abnormal findings Comprehensive Met. Panel Today Z00.00 - Encounter for general adult medical examination without abnormal findings Hemoglobin A1c Today Z00.00 - Encounter for general adult medical examination without abnormal findings Lipid Panel Today Z00.00 - Encounter for general adult medical examination without abnormal findings Microalbumin, Random (w Creat) Today Z00.00 - Encounter for general adult medical examination without abnormal findings Referrals 2 Dermatology Referral D22.9 - Melanocytic nevi, unspecified Patient Instructions: Walk-In Care (Urgent Care): We Make it Easy Walk-in for urgent medical issues such as: ? Seasonal Allergies ? Insect Bites ? Cough ? Diarrhea ? Acute Asthma Attacks ? Back, Knee or Joint Pain ? Ear Infection ? Fever without a Rash ? Headaches ? Nausea ? [place] [facility], Rash or Skin Irritation ? Sore Throat ? Sports Physicals ? Vomiting Most insurances are accepted. Patients do not need to be part of the [facility] to seek care at the walk-in clinic. Locations [address] [place] [address] Open Sunday through Sunday 8am-5pm *Hours may vary due to staffing availability. To confirm Walk-In Care hours please call. [address] [facility] , [place] [address] ? [phone] [facility] in [place] provides services to ages 18 and over. Open Sunday-Sunday: 7 a.m. to 5 p.m. and Sunday: 9 a.m. to 3 p.m.* *Hours may vary due to staffing availability. To confirm Walk-In Care hours in [place], please call [phone]. [address] [place] [address] ? [phone] [facility] in [place] provides services to ages 12 and over. Open Sunday-Sunday: 8 a.m. to 5 p.m. Hours may vary due to staffing availability. To confirm Walk-In Care hours in [place], please call [phone]. LABORATORY SERVICES: [facility] Lab ? Primary Location [address] [place] [address] Sunday through Sunday 6:00 AM ? 5:00 PM Sunday 7:00 AM ? 11:00 AM* [phone] The [facility] Lab is centrally located near the front entrance of the [facility] for easy outpatient access. Convenient parking is provided for outpatients. *Hours may vary due to staffing availability. To confirm Laboratory hours for any location, please call [phone]. Offsite Location For your convenience, we offer offsite laboratory draw stations at the following locations: [address] [place] [address] ? [address], [address] [place] [address] Sunday through Sunday 7:30 AM ? 1:00 PM* [phone] *Hours may vary due to staffing availability. To confirm Laboratory hours for any location, please call [phone]. [place] ? [address] Sunday through Sunday 6:00 AM ? 3:30 PM* Sunday 6:30 AM ? 3 PM* [phone] *Hours may vary due to staffing availability. To confirm Laboratory hours for any location, please call [phone] [place] [address] Sunday through Sunday 7:30 AM ? 4:00 PM* [phone] *Hours may vary due to staffing availability. To confirm Laboratory hours for any location, please call [phone] [place] [address] Sunday through 9:00 AM ? 4:00 PM* *Hours may vary due to staffing availability. To confirm Laboratory hours for any location, please call [phone]. Appointments are not necessary. Walk-ins are welcome. Like all the departments throughout the [facility], our Lab undergoes frequent reviews to ensure the quality and accuracy of test results, and our staff takes special pride in its status as a nationally accredited facility. Patient Portal: [facility] ONE PATIENT. ONE RECORD. BETTER CARE. [facility] has a fully integrated, cutting- edge mobile electronic health information system that has revolutionized the way we care for our patients and manage our organization. This system improves communication and coordination enabling us to provide safe, higher-quality care, and an overall positive experience for staff and patients. Our first priority, as always, is to deliver the highest quality care possible. The system is running in the background supporting that priority. This portal is for all [facility] services and practices. If you are experiencing any technical difficulties with enrolling or logging into the Patient Portal please complete the [facility] Patient Portal Technical Support Form. [facility] now offers a new secure on-line interactive tool for patients to review their health information ? ?Patient Portal. This interactive web portal will enable patients and their families to take an active role in their care by providing easy, secure access to their health information via the internet. The Patient Portal provides patients with instant access to their health information, including laboratory results, medications, allergies, demographic information, visit history, and more. In addition to managing their own care, parents and health care proxies with authorized consent will appreciate the ability to access the records of those individuals for whom they provide care. Please note: if you wish to gain access (Proxy) to another patient?s portal, you will be required to come to the Medical Records Department in person at [facility]. Both the patient giving proxy access and the proxy will need to provide photo identification and complete the appropriate authorization. The Patient Portal also allows track their appointments online. The [facility] Patient Portal also saves patients time by allowing them to submit updates to their demographic and contact information prior to their visits. Portal email notifications will also alert patients to any new activity on their portal, such as test results and new appointments. In order to initially enroll in the [facility] Patient Portal, you will need to enter some required information including the following: * your [facility] Medical Record number * your personal home email address * name * date of Please note: In order to enroll in the [facility] Patient Portal, we need to have your email address on file in your electronic medical record. ?The email address needs to be specific for one person (yourself) in order for your Portal enrollment to be successful. ?You can update your email address in person with our Registration staff when you are registering for a hospital visit. ?Otherwise, you will need to come to the Health Information Management (Medical Records) Department at [facility]. ?We are open from Sunday ? Sunday from 7:30 a.m. ? 4:30 p.m. ?You will be required to present a photo id. Once you have successfully enrolled in the Patient Portal, you will receive a one-time user id and password for the Portal, sent to your email address. ?This will allow you to log into the Patient Portal within 99 hrs and reset your own logon id and password, and define personal security questions. ?Once your permanent login and password have been set, you can log into the [facility] Patient Portal at any time via the blue button above or from the Portal Logon button on any page of the [facility] website. [facility] and [facility] encourage all of our patients to enroll in Patient Portal as it presents a valuable opportunity for patients and their families to actively participate in their care and stay healthy Welcome to [facility]. ?We look forward to working with you. HEALTH SCREENINGS FOR WOMEN YOU SHOULD VISIT YOUR HEALTH CARE PROVIDER FROM TIME TO TIME, EVEN IF YOU ARE HEALTHY. THE PURPOSE OF THESE VISITS IS TO: SCREEN FOR MEDICAL ISSUES ASSESS YOUR RISK FOR FUTURE MEDICAL PROBLEMS ENCOURAGE A HEALTHY LIFESTYLE UPDATE VACCINATIONS AND OTHER PREVENTIVE CARE SERVICES HELP YOU GET TO KNOW YOUR PROVIDER IN CASE OF AN ILLNESS INFORMATION EVEN IF YOU FEEL FINE, YOU SHOULD STILL SEE YOUR PROVIDER FOR REGULAR CHECKUPS. THESE VISITS CAN HELP YOU AVOID PROBLEMS IN THE FUTURE. FOR EXAMPLE, THE ONLY WAY TO FIND OUT IF YOU HAVE HIGH BLOOD PRESSURE IS TO HAVE IT CHECKED REGULARLY. HIGH BLOOD SUGAR AND HIGH CHOLESTEROL LEVELS ALSO MAY NOT HAVE ANY SYMPTOMS IN THE EARLY STAGES. A SIMPLE BLOOD TEST CAN CHECK FOR THESE CONDITIONS. THERE ARE SPECIFIC TIMES WHEN YOU SHOULD SEE YOUR PROVIDER OR RECEIVE SPECIFIC HEALTH SCREENINGS. THE [employer] PUBLISHES A LIST OF RECOMMENDED SCREENINGS. BELOW ARE SCREENING GUIDELINES FOR WOMEN AGES 18 TO 39. BLOOD PRESSURE SCREENING YOUR BLOOD PRESSURE SHOULD BE CHECKED AT LEAST ONCE EVERY 3 TO 5 YEARS IF: YOUR BLOOD PRESSURE IS IN THE NORMAL RANGE (TOP NUMBER LESS THAN 120 MM HG AND BOTTOM NUMBER LESS THAN 80 MM HG) YOU DON'T HAVE RISK FACTORS FOR HIGH BLOOD PRESSURE ASK YOUR PROVIDER IF YOU NEED YOUR BLOOD PRESSURE CHECKED MORE OFTEN IF: THE TOP NUMBER IS 120 TO 129 MM HG OR THE BOTTOM NUMBER IS 70 TO 79 MM HG YOU HAVE DIABETES, HEART DISEASE, KIDNEY PROBLEMS, ARE OVERWEIGHT, OR HAVE CERTAIN OTHER HEALTH CONDITIONS YOU HAVE A FIRST-DEGREE RELATIVE WITH HIGH BLOOD PRESSURE YOU ARE BLACK YOU HAD HIGH BLOOD PRESSURE DURING A IF THE TOP NUMBER IS 130 MM HG OR GREATER OR THE BOTTOM NUMBER IS 80 MM HG OR GREATER, THIS IS CONSIDERED STAGE 1 HYPERTENSION. SCHEDULE AN APPOINTMENT WITH YOUR PROVIDER TO LEARN HOW YOU CAN REDUCE YOUR BLOOD PRESSURE. WATCH FOR BLOOD PRESSURE SCREENINGS IN YOUR AREA. ASK YOUR PROVIDER IF YOU CAN STOP IN TO HAVE YOUR BLOOD PRESSURE CHECKED. BREAST CANCER SCREENING EXPERTS DO NOT AGREE ABOUT THE BENEFITS OF BREAST SELF-EXAMS IN FINDING BREAST CANCER OR SAVING LIVES. TALK TO YOUR PROVIDER ABOUT WHAT IS BEST FOR YOU. A SCREENING MAMMOGRAM IS NOT RECOMMENDED FOR MOST WOMEN UNDER AGE 40. YOUR PROVIDER MAY DISCUSS AND RECOMMEND MAMMOGRAMS, MRI SCANS, OR ULTRASOUNDS IF YOU HAVE AN INCREASED RISK FOR BREAST CANCER, SUCH : A MOTHER OR SISTER WHO HAD BREAST CANCER AT A YOUNG AGE (MOST OFTEN STARTING SCREENING EARLIER THAN THE AGE THE CLOSE RELATIVE WAS DIAGNOSED) YOU CARRY A HIGH-RISK GENETIC MARKER CERVICAL CANCER SCREENING CERVICAL CANCER SCREENING SHOULD START AT AGE 21 YEARS UNLESS YOUR PROVIDER ADVISES OTHERWISE. AFTER THE FIRST TEST: WOMEN AGES 21 THROUGH 29 SHOULD HAVE A PAP TEST EVERY 3 YEARS. EXOPRTS DO NOT AGREE ON WHETHER HPV TESTING IS RECOMMENDED FOR THIS AGE GROUP. WOMEN AGES 30 THROUGH 65 SHOULD BE SCREENED WITH EITHER A PAP TEST EVERY 3 YEARS OR THE HPV TEST EVERY 5 YEARS OR BOTH TESTS EVERY 5 YEARS (CALLED COTESTING ). WOMEN WHO HAVE BEEN TREATED FOR PRECANCER (CERVICAL DYSPLASIA) SHOULD CONTINUE TO HAVE PAP TESTS FOR 20 YEARS AFTER TREATMENT OR UNTIL AGE 65, WHICHEVER IS LONGER. IF YOU HAVE HAD YOUR UTERUS AND CERVIX REMOVED (TOTAL HYSTERECTOMY), AND YOU HAVE NOT BEEN DIAGNOSED WITH CERVICAL CANCER OR PRECANCER (HIGH GRADE CERVICAL NEOPLASIA), YOU DO NOT NEED CERVICAL CANCER SCREENING. CHOLESTEROL SCREENING CHOLESTEROL SCREENING SHOULD BEGIN AT: AGE 45 FOR WOMEN WITH NO KNOWN RISK FACTORS FOR CORONARY HEART DISEASE AGE 20 FOR WOMEN WITH KNOWN RISK FACTORS FOR CORONARY HEART DISEASE REPEAT CHOLESTEROL SCREENING SHOULD TAKE PLACE: EVERY 5 YEARS FOR WOMEN WITH NORMAL CHOLESTEROL LEVELS MORE OFTEN IF CHANGES OCCUR IN LIFESTYLE (INCLUDING WEIGHT GAIN AND DIET) MORE OFTEN IF YOU HAVE DIABETES, HEART DISEASE, KIDNEY PROBLEMS, OR CERTAIN OTHER CONDITIONS DIABETES SCREENING YOU SHOULD BE SCREENED FOR DIABETES STARTING AT AGE 35 AND THEN REPEATED EVERY 3 YEARS IF YOU HAVE NO RISK FACTORS FOR DIABETES. SCREENING MAY NEED TO START EARLIER AND BE REPEATED MORE OFTEN IF YOU HAVE OTHER RISK FACTORS FOR DIABETES, SUCH : YOU HAVE A FIRST DEGREE RELATIVE WITH DIABETES. YOU ARE OVERWEIGHT OR HAVE OBESITY. YOU HAVE HIGH BLOOD PRESSURE, PREDIABETES, OR A HISTORY OF HEART DISEASE. SCREENING FOR DIABETES SHOULD BE DONE IF YOU ARE PLANNING TO BECOME AND YOU ARE OVERWEIGHT AND HAVE OTHER RISK FACTORS SUCH HIGH BLOOD PRESSURE. DENTAL EXAM GO TO THE DENTIST ONCE OR TWICE EVERY YEAR FOR AN EXAM AND CLEANING. YOUR DENTIST WILL EVALUATE IF YOU NEED MORE FREQUENT VISITS. EYE EXAM HAVE AN EYE EXAM EVERY 5 TO 10 YEARS BEFORE AGE 40. IF YOU HAVE VISION PROBLEMS, HAVE AN EYE EXAM EVERY 2 YEARS OR MORE OFTEN IF RECOMMENDED BY YOUR PROVIDER. YOU SHOULD HAVE AN EYE EXAM THAT INCLUDES AN EXAMINATION OF YOUR RETINA (BACK OF YOUR EYE) AT LEAST EVERY YEAR IF YOU HAVE DIABETES. IMMUNIZATIONS COMMONLY NEEDED VACCINES INCLUDE: FLU SHOT: GET ONE EVERY YEAR. COVID-19 VACCINE: ASK YOUR PROVIDER WHAT IS BEST FOR YOU. TETANUS-DIPHTHERIA AND ACELLULAR PERTUSSIS (TDAP) VACCINE: HAVE ONE AT OR AFTER AGE 19 ONE OF YOUR TETANUS-DIPHTHERIA VACCINES IF YOU DID NOT RECEIVE IT AN ADOLESCENT. TETANUS-DIPHTHERIA: HAVE A BOOSTER (OR TDAP) EVERY 10 YEARS. VARICELLA VACCINE: RECEIVE 2 DOSES IF YOU NEVER HAD CHICKENPOX OR THE VARICELLA VACCINE. HEPATITIS B VACCINE: RECEIVE 2, 3, OR 4 DOSES, DEPENDING ON YOUR EXACT CIRCUMSTANCES. MEASLES, MUMPS, AND RUBELLA (MMR) VACCINE: RECEIVE 1 TO 2 DOSES IF YOU ARE NOT ALREADY IMMUNE TO MMR. YOUR PROVIDER CAN TELL YOU IF YOU ARE IMMUNE. ASK YOUR PROVIDER ABOUT THE HUMAN PAPILLOMAVIRUS (HPV) VACCINE IF: YOU HAVE NOT RECEIVED THE HPV VACCINE IN THE PAST YOU HAVE NOT COMPLETED THE FULL VACCINE SERIES (YOU SHOULD CATCH UP ON THIS SHOT) ASK YOUR PROVIDER IF YOU SHOULD RECEIVE OTHER IMMUNIZATIONS IF YOU HAVE CERTAIN HEALTH PROBLEMS THAT INCREASE YOUR RISK FOR SOME DISEASES SUCH PNEUMONIA. INFECTIOUS DISEASE SCREENING WOMEN WHO ARE SEXUALLY ACTIVE SHOULD BE SCREENED FOR CHLAMYDIA AND GONORRHEA UP UNTIL AGE 25. WOMEN 25 YEARS AND OLDER SHOULD BE SCREENED FOR CHLAMYDIA AND GONORRHEA IF AT HIGH RISK. SCREENING FOR HEPATITIS C: ALL ADULTS AGES 18 TO 79 SHOULD GET A ONE-TIME TEST FOR HEPATITIS C. PEOPLE SHOULD BE SCREENED AT EVERY . SCREENING FOR HUMAN IMMUNODEFICIENCY VIRUS (HIV): ALL PEOPLE AGES 15 TO 65 SHOULD GET A ONE-TIME TEST FOR HIV. DEPENDING ON YOUR LIFESTYLE AND MEDICAL HISTORY, YOU MAY ALSO NEED TO BE SCREENED FOR INFECTIONS SUCH SYPHILIS AND HIV, WELL OTHER INFECTIONS. PHYSICAL EXAM ALL ADULTS SHOULD VISIT THEIR PROVIDER FROM TIME TO TIME, EVEN IF THEY ARE HEALTHY. THE PURPOSE OF THESE VISITS IS TO: SCREEN FOR DISEASE ASSESS YOUR RISK OF FUTURE MEDICAL PROBLEMS ENCOURAGE A HEALTHY LIFESTYLE UPDATE YOUR VACCINATIONS AND OTHER PREVENTIVE CARE SERVICES MAINTAIN A RELATIONSHIP WITH A PROVIDER IN CASE OF AN ILLNESS YOUR HEIGHT, WEIGHT, AND BMI SHOULD BE CHECKED AT EVERY EXAM. DURING YOUR EXAM, YOUR PROVIDER MAY ASK YOU ABOUT: DEPRESSION AND ANXIETY DIET AND EXERCISE ALCOHOL AND TOBACCO USE SAFETY ISSUES, SUCH USING SEAT BELTS, SMOKE DETECTORS, AND INTIMATE PARTNER VIOLENCE YOUR MEDICINES AND RISK FOR INTERACTIONS SKIN SELF-EXAM YOUR PROVIDER MAY CHECK YOUR SKIN FOR SIGNS OF SKIN CANCER, ESPECIALLY IF YOU'RE AT HIGH RISK, SUCH IF YOU: HAVE HAD SKIN CANCER BEFORE HAVE CLOSE RELATIVES WITH SKIN CANCER HAVE A WEAKENED IMMUNE SYSTEM OTHER SCREENING TALK WITH YOUR PROVIDER ABOUT COLON CANCER SCREENING IF YOU HAVE A STRONG FAMILY HISTORY OF COLON CANCER OR POLYPS, OR IF YOU HAVE HAD INFLAMMATORY BOWEL DISEASE OR POLYPS YOURSELF. ROUTINE BONE DENSITY SCREENING OF WOMEN UNDER 40 IS NOT RECOMMENDED.
[2025-03-18 15:11] VITALS: BP 122/70; PULSE 85; RESP 12; TEMP 36.2; O2SAT 98; BMI 24.8
== END 2025-03-18 15:48 | disposition home or self-care (01) ==
LOC: HO.HMCFM 14:59
PROVIDERS: PCP Nurse Practitioner Family; Visit Provider Nurse Practitioner Family
DX: Z00.00 Encounter for general adult medical examination without abnormal findings (principal); D22.9 Melanocytic nevi, unspecified; R19.00 Intra-abdominal and pelvic swelling, mass and lump, unspecified site; Z23 Encounter for immunization; Z80.0 Family history of malignant neoplasm of digestive organs; Z80.7 Family history of other malignant neoplasms of lymphoid, hematopoietic and related tissues